=== PATIENT | male | born 1960 | race Caucasian/White ===

== ENCOUNTER → 2017-09-24 | Outpatient (CLI) | payer OTHER | LOC: BMCIMAGING 15:53 | PROVIDERS: ATTEND Internal Medicine | DX: M79.632 Pain in left forearm (principal); M25.532 Pain in left wrist ==

== ENCOUNTER 2018-03-03 09:55 | Emergency (ER) | payer OTHER ==
[2018-03-03 10:36] LABS: PLATELET COUNT 236 10^3/uL (150-400)
--- NOTE | 2018-03-03 10:50 | EDPHY ---
H & P Time Seen by Provider: 03/03/18 10:18 HPI/ROS: CHIEF COMPLAINT: Right-sided lower chest pain HISTORY OF PRESENT ILLNESS: Yesterday evening patient started developing pain into the bottom right part of his rib. He had just returned this past week on Wednesday for [employer] and [employer]. Pain is intermittent, does not radiate, not associated with hematuria or dysuria or hemoptysis or vomiting or diarrhea. Symptoms mild to moderate. No injury. Not better worse with anything. REVIEW OF SYSTEMS: Eye: no change in vision ENT: no sore throat Cardiac: HPI no syncope Pulmonary: no cough or SOB Abdomen: no vomiting, diarrhea, abdominal pain Musculoskeletal: no back pain Skin: no rash Neuro: no headache Constitutional: no fever : no urinary symptoms A comprehensive 10 point review of systems is otherwise negative aside from elements mentioned in the history of present illness. PAST MEDICAL HISTORY: Includes cholecystectomy and muscular dystrophy Social history: Recent travel as noted above. General Appearance: Alert and conversant, cooperative. Eyes: No scleral icterus. ENT, Mouth: Normal mucous membranes. Respiratory: Normal respiratory effort, breath sounds equal, lungs are clear to auscultation. No crepitus and speaks full sentences. Cardiovascular: Regular rate and rhythm. Gastrointestinal: Abdomen is soft and non tender. Negative Zepeda sign. Neurological: Alert, face symmetric, normal motor and sensory in extremities. Skin: Warm and dry, no rashes. No evidence of zoster. Musculoskeletal: No peripheral edema. Psychiatric: Not agitated. Emergency Department course/MDM: Less likely to be PE, more likely to be muscular or inflammatory. I think that renal colic and ACS and retained common duct stone are all less likely. Plan for D-dimer, EKG, LFT and lipase, chest x-ray, urinalysis dip. 1128: Results discussed discharge if urine dip negative. Discussed with patient. Smoking Status: Never smoked Constitutional: Initial Vital Signs Temperature (C) 36.6 C 03/03/18 09:59 Heart Rate 80 03/03/18 09:59 Respiratory Rate 16 03/03/18 09:59 Blood Pressure 144/96 H 03/03/18 09:59 O2 Sat (%) 96 03/03/18 09:59 O2 Delivery Mode Room Air Allergies/Adverse Reactions: tape Allergy (Intermediate, Uncoded 03/03/18 09:59) Rash Home Medications: Medication Instructions Recorded amLODIPine BESYLATE [Norvasc 5 mg 5 mg PO DAILY 05/02/12 (RX)] Medical Decision Making - Diagnostics EKG Interpretation: 12-lead EKG interpreted by me; official reading is in trace master. My interpretation is sinus rhythm with LVH and PVC rate 75 no ischemic changes. Imaging Results: Imaging Impressions Chest X-Ray 03/03/18 10:49 Impression: Normal chest. Imaging: I viewed and interpreted images myself Differential Diagnosis: Differential considered including but not limited to pneumothorax, pulmonary embolism, ACS, pancreatitis, common bile duct stone, zoster. - Data Points Laboratory Results: Laboratory Results 03/03/18 10:20 03/03/18 10:20 03/03/18 03/03/18 03/03/18 11:40 10:20 10:20 WBC RBC Hgb Hct MCV MCH MCHC RDW Plt Count MPV Neut % (Auto) Lymph % (Auto) Brooks % (Auto) Eos % (Auto) Baso % (Auto) Nucleat RBC Rel Count Absolute Neuts (auto) Absolute Lymphs (auto) Absolute Monos (auto) Absolute Eos (auto) Absolute Basos (auto) Absolute Nucleated RBC Immature Gran % Immature Gran # D-Dimer 0.33 ug/mLFEU ug/mLFEU (0.00-0.50) Sodium 135 mEq/L mEq/L (135-145) Potassium 4.1 mEq/L mEq/L (3.3-5.0) Chloride 102 mEq/L mEq/L (97-110) Carbon Dioxide 25 mEq/l mEq/l (22-31) Anion Gap 8 mEq/L mEq/L (8-16) BUN 12 mg/dL mg/dL (7-23) Creatinine 0.7 mg/dL mg/dL (0.7-1.3) Estimated GFR > 60 Glucose 107 mg/dL H mg/dL (70-100) Calcium 9.5 mg/dL mg/dL (8.5-10.4) Total Bilirubin 0.6 mg/dL mg/dL (0.1-1.4) Conjugated Bilirubin 0.1 mg/dL mg/dL (0.0-0.5) Unconjugated Bilirubin 0.5 mg/dL mg/dL (0.0-1.1) AST 37 IU/L IU/L (17-59) ALT 70 IU/L IU/L (21-72) Alkaline Phosphatase 63 IU/L IU/L (38-126) Total Protein 6.9 g/dL g/dL (6.3-8.2) Albumin 4.3 g/dL g/dL (3.5-5.0) Lipase 69 IU/L IU/L (23-300) Urine Color YELLOW Urine Appearance CLEAR Urine pH 7.0 (5.0-7.5) Ur Specific [place] 1.018 (1.002-1.030) Urine Protein NEGATIVE (NEGATIVE) Urine Ketones NEGATIVE (NEGATIVE) Urine Blood NEGATIVE (NEGATIVE) Urine Nitrate NEGATIVE (NEGATIVE) Urine Bilirubin NEGATIVE (NEGATIVE) Urine Urobilinogen NEGATIVE EU EU (0.2-1.0) Ur Leukocyte Esterase NEGATIVE (NEGATIVE) Urine Glucose NEGATIVE (NEGATIVE) 03/03/18 10:20 WBC 6.58 10^3/uL 10^3/uL (3.80-9.50) RBC 4.86 10^6/uL 10^6/uL (4.40-6.38) Hgb 14.8 g/dL g/dL (13.7-17.5) Hct 43.0 % % (40.0-51.0) MCV 88.5 fL fL (81.5-99.8) MCH 30.5 pg pg (27.9-34.1) MCHC 34.4 g/dL g/dL (32.4-36.7) RDW 13.1 % % (11.5-15.2) Plt Count 236 10^3/uL 10^3/uL (150-400) MPV 9.3 fL fL (8.7-11.7) Neut % (Auto) 58.5 % % (39.3-74.2) Lymph % (Auto) 28.3 % % (15.0-45.0) Brooks % (Auto) 8.2 % % (4.5-13.0) Eos % (Auto) 4.3 % % (0.6-7.6) Baso % (Auto) 0.5 % % (0.3-1.7) Nucleat RBC Rel Count 0.0 % % (0.0-0.2) Absolute Neuts (auto) 3.86 10^3/uL 10^3/uL (1.70-6.50) Absolute Lymphs (auto) 1.86 10^3/uL 10^3/uL (1.00-3.00) Absolute Monos (auto) 0.54 10^3/uL 10^3/uL (0.30-0.80) Absolute Eos (auto) 0.28 10^3/uL 10^3/uL (0.03-0.40) Absolute Basos (auto) 0.03 10^3/uL 10^3/uL (0.02-0.10) Absolute Nucleated RBC 0.00 10^3/uL 10^3/uL (0-0.01) Immature Gran % 0.2 % % (0.0-1.1) Immature Gran # 0.01 10^3/uL 10^3/uL (0.00-0.10) D-Dimer Sodium Potassium Chloride Carbon Dioxide Anion Gap BUN Creatinine Estimated GFR Glucose Calcium Total Bilirubin Conjugated Bilirubin Unconjugated Bilirubin AST ALT Alkaline Phosphatase Total Protein Albumin Lipase Urine Color Urine Appearance Urine pH Ur Specific [place] Urine Protein Urine Ketones Urine Blood Urine Nitrate Urine Bilirubin Urine Urobilinogen Ur Leukocyte Esterase Urine Glucose Point of Care Test Results: Urine Dip Specific [place] (1.002-1.030) 1.020 PH (5.0-7.5) 6.0 Leukocytes (Negative) Negative Nitrites (Negative) Negative Protein (Negative) Negative Glucose (Negative) Negative Ketones (Negative) Trace Urobilnogen (0.2-1.0 EU) 0.2 Bilirubin (Negative) Negative Blood (Negative) Negative Departure - Departure Disposition: Home, Routine, Self-Care Clinical Impression: Right-sided chest pain Condition: Good Instructions: Chest Pain (ED) Referrals: Bob Cortez MD [Primary Care Provider] - As per Instructions
--- NOTE | 2018-03-03 11:03 | CPEKG ---
Heart Rate: 75 RR Interval: 800 P-R Interval: 168 QRSD Interval: 92 QT Interval: 392 QTC Interval: 438 P Brea: 48 QRS Brea: -22 T Wave Brea: 26 EKG Severity - BORDERLINE ECG - EKG Impression: SINUS RHYTHM EKG Impression: VENTRICULAR PREMATURE COMPLEX EKG Impression: LVH BY VOLTAGE Electronically Signed By: Jose Phipps 03-Mar-2018 11:05:08
[2018-03-03 12:00] VITALS: BP 135/86
== END 2018-03-03 11:57 | disposition home or self-care (01) ==
DX: R07.9 Chest pain, unspecified (principal)